=== PATIENT | male | born 1985 | race Caucasian/White ===

== ENCOUNTER 2024-10-15 07:47 | Emergency (ER) | payer OTHER ==
[~2024-10-15] VITALS: Ht 180.3 cm; Wt 72.7 kg
[2024-10-15] MEDS ORDERED: SUBLOCADE100 MG/0.5 SUB-Q (08:02)
[2024-10-15 08:58] VITALS: BP 105/78
[2024-10-15] MEDS ORDERED: DIPHTH,PERTUSS(ACELL),TET VAC 0.5 ML SYRINGE IM ONE (09:00)
[2024-10-16] MEDS ORDERED: BACTRIM DS TAB1 EACH PO (16:39)
== END 2024-10-15 09:00 | disposition home or self-care (01) ==
LOC: ED 07:47
DX: S11.81XA Laceration without foreign body of other specified part of neck, initial encounter (principal); W26.8XXA Contact with other sharp object(s), not elsewhere classified, initial encounter; Z79.899 Other long term (current) drug therapy
CPT/HCPCS: 90471; 90715; 99283-25

== ENCOUNTER 2024-10-16 16:11 | Emergency (ER) | payer OTHER ==
[~2024-10-16] VITALS: Ht 180.3 cm; Wt 73.0 kg
[~2024-10-16 16:11] MED LIST: SUBLOCADE100 MG/0.5 SUB-Q
--- OUTSIDE RECORDS SUMMARY | 2024-10-16 16:16 | XMS ---
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 Tonya has no Care Guidelines for this patient. [facility] (12 MO.) [facility] NOTE: Visits indicate total known visits. ED/C VISIT TRACKING (12 MO.) 10/16/2024 16:12 [facility] COMPLAINT: - WOUND CHECK 10/15/2024 07:48 [facility] OR TYPE: Emergency COMPLAINT: - LACERATION INPATIENT VISIT TRACKING (12 MO.) No inpatient visits to display in this time frame [email or web address]
[2024-10-16] MEDS ORDERED: BACTRIM DS TAB1 EACH PO (16:39)
[2024-10-16 16:59] VITALS: BP 113/80
== END 2024-10-16 16:59 | disposition home or self-care (01) ==
LOC: ED 16:11
DX: S11.81XA Laceration without foreign body of other specified part of neck, initial encounter (principal); Z79.899 Other long term (current) drug therapy; W27.8XXA Contact with other nonpowered hand tool, initial encounter
CPT/HCPCS: 99282